=== PATIENT | female | born 1960 | race Caucasian/White ===

== ENCOUNTER 2021-04-12 10:05 | Emergency (ER) | payer BC ==
[2021-04-12] MEDS ORDERED: ADVIL 200MG TA200 MG PO (10:20)
[2021-04-12] MEDS ORDERED: XANAX0.5 M1 PO (10:20)
[2021-04-12 11:07] LABS: URINE APPEARANCE CLEAR; URINE BILIRUBIN NEGATIVE (NEGATIVE); URINE BLOOD NEGATIVE (NEGATIVE); URINE COLOR YELLOW; URINE GLUCOSE NEGATIVE (NEGATIVE); URINE KETONE NEGATIVE (NEGATIVE); URINE LEUKOCYTE ESTERASE NEGATIVE (NEGATIVE); URINE NITRATE NEGATIVE (NEGATIVE); URINE PROTEIN(semi-quant) NEGATIVE (NEGATIVE); URINE UROBILINOGEN NORMAL (NORMAL); URINE WBC 0-1 /hpf (0-3)
[2021-04-12 11:26] LABS: BASO # 0.04 (0.02-0.10); EOS # 0.08 (0.04-0.40); EOS % 1.3 % (1.0-5.0); HEMATOCRIT 44.1 % (37.0-47.0); HEMOGLOBIN 15.3 g/dL (12.5-16.0); LYMPH# 1.58 (1.50-4.00); MEAN CELL VOLUME 94 fl (78-100); MEAN CORPUSCULAR HEMOGLOBIN 33 pg (27-31); MEAN CORPUSCULAR HGB CONC 35 g/dL (33-37); MEAN PLATELET VOLUME 9.3 fl (7.4-10.4); MONO # 0.59 (0.20-0.80); NEU # 3.82 (1.40-6.50); PLATELET COUNT 233 K/mm3 (130-400); RED BLOOD COUNT 4.68 M/mm3 (4.10-5.30); RED CELL DISTRIBUTION WIDTH 11.9 % (11.5-14.5); WHITE BLOOD COUNT 6.1 K/mm3 (4.8-10.8)
[2021-04-12 11:38] LABS: ALBUMIN 4.4 g/dL (3.4-4.8); POTASSIUM 3.6 mmol/L (3.5-5.1); SODIUM 140 mmol/L (136-145)
[2021-04-12 11:40] LABS: GLUCOSE 97 mg/dL (65-105)
[2021-04-12 11:41] LABS: TOTAL PROTEIN 7.4 g/dL (6.2-8.1)
[2021-04-12 11:42] LABS: CARBON DIOXIDE 24 mmol/L (23-31); TOTAL BILIRUBIN 0.7 mg/dL (0.2-1.2)
[2021-04-12 11:46] LABS: AST-SGOT 19 U/L (5-34)
[2021-04-12 11:47] LABS: ALT/SGPT 17 U/L (0-55)
[2021-04-12 11:57] LABS: TROPONIN-I < 0.03 ng/mL (<0.030)
[2021-04-12] MEDS ORDERED: GOOD NEIGHBOR M25 M1 PO (14:19)
[2021-04-12] MEDS ORDERED: VALIUM2 M1 PO (14:19)
[2021-04-12] MEDS ORDERED: ONDANSETRON ODT8 MG PO (14:20)
[2021-04-12 14:30] VITALS: BP 122/72
== END 2021-04-12 14:30 | disposition home or self-care (01) ==
LOC: ED 10:05
PROVIDERS: Nurse Practitioner Family
DX: R42 Dizziness and giddiness (principal); R53.81 Other malaise; R53.83 Other fatigue; R11.0 Nausea; Z86.16 Personal history of COVID-19
CPT/HCPCS: J2405; J3360; J7030

== ENCOUNTER → 2022-01-10 | Outpatient (CLI) | payer BC ==
[~2022-01-10] MED LIST: ADVIL 200MG TA200 MG PO; GOOD NEIGHBOR M25 M1 PO; ONDANSETRON ODT8 MG PO; VALIUM2 M1 PO; XANAX0.5 M1 PO
== END ==
LOC: MAMMO 08:30
DX: Z12.31 Encounter for screening mammogram for malignant neoplasm of breast (principal); N63.10 Unspecified lump in the right breast, unspecified quadrant; N63.20 Unspecified lump in the left breast, unspecified quadrant; R92.0 Mammographic microcalcification found on diagnostic imaging of breast

== ENCOUNTER → 2022-01-19 | Outpatient (CLI) | payer BC | LOC: MAMMO 13:45 | DX: N63.11 Unspecified lump in the right breast, upper outer quadrant (principal); N63.15 Unspecified lump in the right breast, overlapping quadrants ==

== ENCOUNTER → 2022-01-26 | Outpatient (CLI) | payer BC | LOC: RAD 13:14 | DX: N63.11 Unspecified lump in the right breast, upper outer quadrant (principal); N63.15 Unspecified lump in the right breast, overlapping quadrants | CPT/HCPCS: 15989; 15990; A4648 ==

== ENCOUNTER → 2023-02-20 | Outpatient (CLI) | payer BC | LOC: MAMMO 10:37 | DX: Z12.31 Encounter for screening mammogram for malignant neoplasm of breast (principal); R92.8 Other abnormal and inconclusive findings on diagnostic imaging of breast ==

== ENCOUNTER → 2024-02-27 | Outpatient (CLI) | payer BC | LOC: MAMMO 09:17 | DX: Z12.31 Encounter for screening mammogram for malignant neoplasm of breast (principal) ==

== ENCOUNTER 2024-12-23 22:49 | Emergency (ER) | payer BC ==
[~2024-12-23] VITALS: Wt 61.3 kg
[2024-12-23] MEDS ORDERED: ANASTROZOLE1 M1 PO (23:06)
[2024-12-23] MEDS ORDERED: ALENDRONATE SOD70 MG PO (23:07)
[2024-12-23] MEDS ORDERED: ATROVENT I0.2 MG/1 M IH (23:07)
[2024-12-23 23:17] LABS: BASO # 0.02 K/mm3 (0.02-0.10); EOS # 0.07 K/mm3 (0.04-0.40); EOS % 1.5 % (1.0-5.0); HEMATOCRIT 40.5 % (37.0-47.0); HEMOGLOBIN 14.1 g/dL (12.5-16.0); LYMPH# 0.73 K/mm3 (1.50-4.00); MEAN CELL VOLUME 97 fl (78-100); MEAN CORPUSCULAR HEMOGLOBIN 34 pg (27-31); MEAN CORPUSCULAR HGB CONC 35 g/dL (33-37); NEU # 3.32 K/mm3 (1.40-6.50); PLATELET COUNT 180 K/mm3 (130-400); RED BLOOD COUNT 4.17 M/mm3 (4.10-5.30); RED CELL DISTRIBUTION WIDTH 12.8 % (11.5-14.5); WHITE BLOOD COUNT 4.6 K/mm3 (4.8-10.8)
[2024-12-23 23:26] LABS: ALBUMIN 4.1 g/dL (3.4-4.8)
[2024-12-23 23:27] LABS: CALCIUM 9.2 mg/dL (8.3-10.5)
[2024-12-23 23:28] LABS: TOTAL PROTEIN 7.1 g/dL (6.2-8.1)
[2024-12-23 23:30] LABS: TOTAL BILIRUBIN 0.8 mg/dL (0.2-1.2)
[2024-12-23] MEDS ORDERED: Albuterol/Ipratropium 3 MG-0.5 MG/3 ML Neb Soln IH ONE (23:30)
[2024-12-23] MEDS ORDERED: predniSONE 20 MG TAB PO ONE (23:30)
[2024-12-23] MEDS ORDERED: Albuterol 0.083% Nebule (2.5 MG/3 ML) IH SCH (23:30)
[2024-12-24] MEDS ORDERED: PREDNISONE10 MG PO (01:39)
[2024-12-24 02:00] VITALS: BP 136/68
== END 2024-12-24 02:00 | disposition home or self-care (01) ==
LOC: ED 22:49
PROVIDERS: Physician Assistant
DX: J06.9 Acute upper respiratory infection, unspecified (principal); Z88.0 Allergy status to penicillin; Z88.1 Allergy status to other antibiotic agents
CPT/HCPCS: J7512